=== PATIENT | female | born 1995 | race Caucasian/White ===

== ENCOUNTER 2020-10-10 22:40 | Inpatient (IN) ==
[2020-10-10 17:34] LABS: Amorphous Sediment,Urine Few per hpf (None-Few); Bilirubin,Urine Negative (Negative); Blood,Urine Negative (Negative); Clarity,Urine Turbid (Clear); Color,Urine Yellow (Yellow); Glucose,Urine (UA) Normal (Normal); Ketones,Urine Negative (Negative); Leukocyte Esterase,Urine Negative (Negative); Mucus,Urine Few per lpf (None-Few); Nitrite,Urine Negative (Negative); PH,Urine 7.5 pH Units (5.0-8.0); Protein,Urine Negative (Neg-Trace); RBC,Urine 0-3 per hpf (0-3); Squamous Epithelial Cell,Urine Few per hpf (None-Few)
[2020-10-10 19:28] LABS: Amphetamine Screen,Urine Positive ng/mL (Cutoff=1000); Barbiturate Screen,Urine Negative ng/mL (Cutoff=200); Benzodiazepines Screen,Urine Negative ng/mL (Cutoff=200); Cannabinoid Screen,Urine Positive ng/mL (Cutoff = 50); Cocaine Screen,Urine Negative ng/mL (Cutoff= 300); Opiate Screen,Urine Negative ng/mL (Cutoff=300); Phencyclidine Screen,Urine Negative ng/mL (Cutoff=25)
[2020-10-10 20:24] LABS: Basophils % 0.4 %; Eosinophils # 0.1 K/mcL (0.0-0.6); Eosinophils % 0.6 %; Hematocrit 35.6 % (35.3-44.9); Hemoglobin 11.4 g/dL (11.5-15.4); Immature Granulocytes % 0.7 % (0-4); Lymphocytes # 1.6 K/mcL (0.6-4.6); Lymphocytes % 15.8 %; Mean Corpuscular Hemoglobin 26.8 pg (28.0-33.3); Mean Corpuscular Volume 83.6 fL (83.0-100.0); Mean Platelet Volume 11.2 fL (9.4-12.4); Monocytes % 9.6 %; Neutrophils # 7.4 K/mcL (1.6-8.9); Platelet Count 269 K/mcL (140-400); Red Blood Count 4.26 M/mcL (3.82-4.97); Red Cell Distribution Width 14.6 % (11.5-14.5); Segmented Neutrophils % 72.9 %; White Blood Count 10.2 K/mcL (4.3-11.1)
[2020-10-10 20:35] LABS: Hepatitis B Surface Antigen Nonreactive (Nonreactive)
[2020-10-10 21:04] LABS: HIV-1&2 Antibody & p24 Ag Nonreactive (Nonreactive)
[2020-10-10 21:47] LABS: Creatinine,Urine 69 mg/dL; Protein/Creatinine Ratio,Urine 0.16 mg/mg (0.00-0.20)
[2020-10-10 21:47] LABS: Alanine Aminotransferase 80 Units/L (7-52); Aspartate Amino Transferase 76 Units/L (13-39); BUN/Creatinine Ratio 14 (6-26); Blood Urea Nitrogen 8 mg/dL (6-20); Lactate Dehydrogenase 211 Units/L (140-271); Uric Acid 3.5 mg/dL (2.3-7.6); eGFR For African Americans > 60 (> 60); eGFR For Non-African Americans > 60 (> 60)
[2020-10-10 21:48] LABS: Varicella Zoster IgG Antibody Negative
[2020-10-10 22:01] LABS: Rubella IgG Antibody POSITIVE (POSITIVE)
[~2020-10-10 22:40] MED LIST: *HR* Nalbuphine 10 MG/ML AMPUL IV PRN; Famotidine 20 MG/2 ML VIAL IVP PRN; Lidocaine 1% 20 ML MDV INFILT PRN; Metoclopramide 10 MG/2 ML VIAL IVP PRN; Naloxone 0.4 MG/ML INJ IVP PRN; Ondansetron 4 MG/2 ML VIAL IVP ONE; Ondansetron 4 MG/2 ML VIAL IVP PRN; Ringers Solution, Lactated 1,000 ML IVC SCH
[2020-10-10] MEDS ORDERED: Ropivacaine/PF 0.2% 20 ML VIAL ONE (22:47)
[2020-10-10] MEDS ORDERED: *HR* FentaNYL (PF) 100 MCG/2 ML VIAL ONE (22:47)
[2020-10-10] MEDS ORDERED: Epidural Premix (fent/bupiv) 110 ML EP ONE (22:49)
[2020-10-10] MEDS ORDERED: Penicillin G Potassium 5,000,000 UNIT in 0.9 % Sodium Chloride Mini Bag 100 ML IVPB ONE (22:52)
[2020-10-10] MEDS ORDERED: Betamethasone Acet/SodPhos 30 MG/5 ML VIAL IM SCH (23:00)
[2020-10-10] MEDS: Epidural Premix (fent/bupiv) 110 ML EP SCH (23:10)
[2020-10-10] MEDS ORDERED: EPHEDrine 50 MG/ML VIAL IVP PRN (23:18)
[2020-10-11 00:23] LABS: Influenza A PCR Negative (Negative); Influenza B PCR Negative (Negative); Resp. Syncytial Virus PCR Negative (Negative)
[2020-10-11 00:25] LABS: SARS-CoV-2 by PCR (In House) Negative (Negative)
[2020-10-11] MEDS ORDERED: Penicillin G Potassium 2,500,000 UNIT/105 ML MLS IVPB SCH (03:00)
[2020-10-11] MEDS ORDERED: Oxytocin 20 units/ LR 1000 mL 20 UNIT/1,000 ML BAG IVC ONE (03:59)
[2020-10-11] MEDS ORDERED: Oxytocin 20 units/ LR 1000 mL 20 UNIT/1,000 ML BAG IVC SCH ×2 (04:00→09:37)
[2020-10-11] MEDS: Epidural Premix (fent/bupiv) 110 ML EP SCH (05:52)
[2020-10-11] MEDS ORDERED: Lidocaine -MPF 2% 5 ML VIAL ONE (05:56)
[2020-10-11] MEDS ORDERED: Ondansetron ODT 4 MG TAB.RAPDIS SL PRN (09:37)
[2020-10-11] MEDS ORDERED: Benzocaine/Menthol 56 GM AEROSOL SPRAY TP PRN (09:37)
[2020-10-11] MEDS ORDERED: Lanolin 7 G OINT...G. TP PRN (09:37)
[2020-10-11] MEDS ORDERED: Nicotine 21 MG PATCH.TD24 TD SCH (11:15)
[2020-10-11] MEDS: Prenatal Vit/FA 1 EACH TABLET PO SCH (11:27)
[2020-10-11] MEDS: Acetaminophen 325 MG TABLET PO SCH ×2 (11:27→21:43)
[2020-10-11] MEDS: Ibuprofen 600 MG TABLET PO SCH ×2 (11:27→21:42)
[2020-10-12] MEDS: Ibuprofen 600 MG TABLET PO SCH (04:40)
[2020-10-12] MEDS: Acetaminophen 325 MG TABLET PO SCH ×2 (04:41→11:32)
[2020-10-12 04:49] VITALS: BP 98/66; PULSE 88; TEMP 97.8; O2SAT 99
[2020-10-12 07:07] LABS: Basophils # 0.1 K/mcL (0.0-0.2); Basophils % 0.4 %; Eosinophils % 0.1 %; Hematocrit 34.3 % (35.3-44.9); Immature Granulocytes % 1.8 % (0-4); Lymphocytes # 1.7 K/mcL (0.6-4.6); Lymphocytes % 12.8 %; Mean Corpuscular HGB Conc 32.1 g/dL (31.6-35.5); Mean Corpuscular Hemoglobin 26.5 pg (28.0-33.3); Mean Corpuscular Volume 82.7 fL (83.0-100.0); Mean Platelet Volume 11.2 fL (9.4-12.4); Monocytes % 7.1 %; Neutrophils # 10.5 K/mcL (1.6-8.9); Platelet Count 280 K/mcL (140-400); Red Blood Count 4.15 M/mcL (3.82-4.97); Red Cell Distribution Width 14.7 % (11.5-14.5); Segmented Neutrophils % 77.8 %; White Blood Count 13.5 K/mcL (4.3-11.1)
[2020-10-12] MEDS: Prenatal Vit/FA 1 EACH TABLET PO SCH (11:32)
== END 2020-10-12 12:17 | disposition home or self-care (01) | DRG 560 ==
LOC: 1NENULAB → 1NENUOBS 10-11 09:34
PROVIDERS: ADMIT Advanced Practice Midwife; ATTEND Advanced Practice Midwife

== ENCOUNTER → 2021-10-24 20:09 | Observation (INO) ==
[2021-10-24 19:39] LABS: Bilirubin,Urine Negative (Negative); Blood,Urine Negative (Negative); Clarity,Urine Clear (Clear); Color,Urine Yellow (Yellow); Glucose,Urine (UA) Normal (Normal); Ketones,Urine Trace mg/dL (Negative); Leukocyte Esterase,Urine Negative (Negative); Nitrite,Urine Negative (Negative); PH,Urine 6.5 pH Units (5.0-8.0); Protein,Urine Trace mg/dL (Neg-Trace); Specific Gravity,Urine > 1.030 (1.010-1.025)
[2021-10-24 19:41] LABS: Protein/Creatinine Ratio,Urine 0.2 mg/mg (0.00-0.20)
[2021-10-24 19:42] LABS: Amphetamine Screen,Urine Negative ng/mL (Cutoff=1000); Barbiturate Screen,Urine Negative ng/mL (Cutoff=200); Benzodiazepines Screen,Urine Negative ng/mL (Cutoff=200); Cannabinoid Screen,Urine Negative ng/mL (Cutoff = 50); Cocaine Screen,Urine Negative ng/mL (Cutoff= 300); Opiate Screen,Urine Negative ng/mL (Cutoff=300); Phencyclidine Screen,Urine Negative ng/mL (Cutoff=25)
[2021-10-24 19:50] LABS: Basophils % 0.3 %; Eosinophils # 0.1 K/mcL (0.0-0.6); Hematocrit 32.8 % (35.3-44.9); Hemoglobin 10.8 g/dL (11.5-15.4); Immature Granulocytes % 0.9 % (0-4); Lymphocytes # 2.2 K/mcL (0.6-4.6); Lymphocytes % 22.8 %; Mean Corpuscular HGB Conc 32.9 g/dL (31.6-35.5); Mean Corpuscular Hemoglobin 28.7 pg (28.0-33.3); Mean Corpuscular Volume 87.2 fL (83.0-100.0); Mean Platelet Volume 11.9 fL (9.4-12.4); Monocytes # 0.8 K/mcL (0.0-1.3); Monocytes % 7.9 %; Neutrophils # 6.5 K/mcL (1.6-8.9); Platelet Count 219 K/mcL (140-400); Red Blood Count 3.76 M/mcL (3.82-4.97); Red Cell Distribution Width 14.7 % (11.5-14.5); Segmented Neutrophils % 67.1 %; White Blood Count 9.7 K/mcL (4.3-11.1)
[2021-10-24 19:53] LABS: Alanine Aminotransferase 12 Units/L (7-52); Aspartate Amino Transferase 15 Units/L (13-39); BUN/Creatinine Ratio 21 (6-26); Blood Urea Nitrogen 10 mg/dL (6-20); Lactate Dehydrogenase 93 Units/L (140-271); Uric Acid 3.6 mg/dL (2.3-7.6)
[~2021-10-24 20:09] MED LIST changes: -*HR* Nalbuphine 10 MG/ML AMPUL IV PRN; +EPHEDrine sulfate 50 MG/10 ML VIAL IVP PRN; +Epidural Premix (fent/bupiv) 110 ML EP SCH; -Famotidine 20 MG/2 ML VIAL IVP PRN; -Lidocaine 1% 20 ML MDV INFILT PRN; +Metoclopramide 10 MG/2 ML VIAL IVP ONE; -Metoclopramide 10 MG/2 ML VIAL IVP PRN; -Naloxone 0.4 MG/ML INJ IVP PRN; -Ondansetron 4 MG/2 ML VIAL IVP ONE; -Ondansetron 4 MG/2 ML VIAL IVP PRN; -Ringers Solution, Lactated 1,000 ML IVC SCH
== END | disposition home or self-care (01) ==
LOC: 1NENULAB
PROVIDERS: ADMIT Advanced Practice Midwife; ATTEND Advanced Practice Midwife

== ENCOUNTER → 2021-10-30 02:00 | Observation (INO) ==
[2021-10-29 23:59] LABS: Bilirubin,Urine Negative (Negative); Blood,Urine Negative (Negative); Clarity,Urine Clear (Clear); Color,Urine Light-Yellow (Yellow); Glucose,Urine (UA) Normal (Normal); Ketones,Urine Negative (Negative); Leukocyte Esterase,Urine Moderate (Negative); Mucus,Urine Few per lpf (None-Few); Nitrite,Urine Negative (Negative); Protein,Urine Trace mg/dL (Neg-Trace); RBC,Urine 0-3 per hpf (0-3); Specific Gravity,Urine 1.023 (1.010-1.025); Squamous Epithelial Cell,Urine Moderate per hpf (None-Few)
== END | disposition home or self-care (01) ==
LOC: 1NENULAB
PROVIDERS: ADMIT Advanced Practice Midwife; ATTEND Advanced Practice Midwife

== ENCOUNTER 2021-11-08 21:33 | Inpatient (IN) ==
[2021-11-08 20:25] LABS: Basophils % 0.2 %; Eosinophils # 0.1 K/mcL (0.0-0.6); Eosinophils % 0.6 %; Hematocrit 34.5 % (35.3-44.9); Hemoglobin 11.2 g/dL (11.5-15.4); Immature Granulocytes % 0.9 % (0-4); Lymphocytes % 16.3 %; Mean Corpuscular HGB Conc 32.5 g/dL (31.6-35.5); Mean Corpuscular Hemoglobin 28.1 pg (28.0-33.3); Mean Corpuscular Volume 86.5 fL (83.0-100.0); Mean Platelet Volume 11.9 fL (9.4-12.4); Monocytes # 0.8 K/mcL (0.0-1.3); Monocytes % 6.2 %; Neutrophils # 9.2 K/mcL (1.6-8.9); Platelet Count 235 K/mcL (140-400); Red Blood Count 3.99 M/mcL (3.82-4.97); Red Cell Distribution Width 14.6 % (11.5-14.5); Segmented Neutrophils % 75.8 %; White Blood Count 12.2 K/mcL (4.3-11.1)
[2021-11-08 20:42] LABS: Alanine Aminotransferase 13 Units/L (7-52); Aspartate Amino Transferase 14 Units/L (13-39); BUN/Creatinine Ratio 16 (6-26); Blood Urea Nitrogen 9 mg/dL (6-20); Lactate Dehydrogenase 106 Units/L (140-271); Uric Acid 4.4 mg/dL (2.3-7.6)
[2021-11-08 20:48] LABS: Amphetamine Screen,Urine Negative ng/mL (Cutoff=1000); Barbiturate Screen,Urine Negative ng/mL (Cutoff=200); Benzodiazepines Screen,Urine Negative ng/mL (Cutoff=200); Cannabinoid Screen,Urine Negative ng/mL (Cutoff = 50); Cocaine Screen,Urine Negative ng/mL (Cutoff= 300); Opiate Screen,Urine Negative ng/mL (Cutoff=300); Phencyclidine Screen,Urine Negative ng/mL (Cutoff=25)
[~2021-11-08 21:33] MED LIST changes: -EPHEDrine sulfate 50 MG/10 ML VIAL IVP PRN; -Epidural Premix (fent/bupiv) 110 ML EP SCH; +Famotidine 20 MG/2 ML VIAL IVP PRN; +Lidocaine 1% 20 ML MDV INFILT PRN; -Metoclopramide 10 MG/2 ML VIAL IVP ONE; +Metoclopramide 10 MG/2 ML VIAL IVP PRN; +Naloxone 0.4 MG/ML INJ IVP PRN; +Ondansetron 4 MG/2 ML VIAL IVP PRN; +Oxytocin 30 UNIT/503 ML BAG IVC SCH
[2021-11-08 22:06] LABS: Candida DNA Not Detected (Not Detect); Gardnerella DNA DETECTED (Not Detect); Trichomonas DNA Not Detected (Not Detect)
[2021-11-08 22:22] LABS: Protein/Creatinine Ratio,Urine 0.18 mg/mg (0.00-0.20)
[2021-11-08] MEDS: Ringers Solution, Lactated 1,000 ML IVC SCH (22:43)
[2021-11-09] MEDS ORDERED: *HR* FentaNYL (PF) 100 MCG/2 ML VIAL ONE ×2 (02:05→08:20)
[2021-11-09] MEDS ORDERED: Epidural Premix (fent/bupiv) 110 ML EP ONE (02:09)
[2021-11-09] MEDS ORDERED: EPHEDrine sulfate 50 MG/10 ML VIAL IVP PRN (02:38)
[2021-11-09] MEDS ORDERED: Epidural Premix (fent/bupiv) 110 ML EP SCH (02:45)
[2021-11-09] MEDS ORDERED: Ropivacaine/PF 0.2% 20 ML VIAL ONE ×2 (06:26→07:33)
[2021-11-09] MEDS ORDERED: Lidocaine -MPF 2% 2 ML VIAL ONE ×2 (06:51→10:03)
[2021-11-09] MEDS ORDERED: Bupivacaine-MPF 0.25% 10 ML VIAL ONE (08:20)
[2021-11-09] MEDS ORDERED: *HR* Norepinephrine 4 MG/4 ML VIAL IVC ONE (08:20)
[2021-11-09] MEDS ORDERED: Ondansetron 4 MG/2 ML VIAL ONE (08:22)
[2021-11-09] MEDS: Ringers Solution, Lactated 1,000 ML IVC SCH (08:22)
[2021-11-09] MEDS ORDERED: Ondansetron ODT 4 MG TAB.RAPDIS SL PRN (16:45)
[2021-11-09] MEDS ORDERED: Lanolin 7 G OINT...G. TP PRN (16:45)
[2021-11-09] MEDS ORDERED: Benzocaine/Menthol 56 GM AEROSOL SPRAY TP PRN (16:45)
[2021-11-09] MEDS ORDERED: Oxytocin 30 UNIT/503 ML BAG IVC SCH (16:45)
[2021-11-09] MEDS: Acetaminophen 325 MG TABLET PO SCH (21:22)
[2021-11-09] MEDS: Ibuprofen 600 MG TABLET PO SCH (21:22)
[2021-11-10] MEDS: Acetaminophen 325 MG TABLET PO SCH (08:47)
[2021-11-10] MEDS: Ibuprofen 600 MG TABLET PO SCH (08:48)
[2021-11-10] MEDS ORDERED: Prenatal Vit/FA 1 EACH TABLET PO SCH (09:00)
[2021-11-10] MEDS ORDERED: Nystatin POWDER 30 GM BOTTLE TP SCH (09:00)
[2021-11-10 09:39] VITALS: BP 124/83; PULSE 65; TEMP 97.9; O2SAT 99
== END 2021-11-10 16:17 | disposition home or self-care (01) | DRG 560 ==
LOC: 1NENULAB → 1NENUOBS 11-09 16:32
PROVIDERS: ADMIT Advanced Practice Midwife; ATTEND Advanced Practice Midwife